=== PATIENT | male | born 1950 | race Two or more races ===

== ENCOUNTER 2022-11-17 21:38 | Emergency (ER) | payer MEDICARE, MEDICAID ==
[~2022-11-17] VITALS: Ht 177.8 cm; Wt 64.0 kg
[2022-11-17] MEDS ORDERED: SODIUM BICARBONATE 8.4% INJ 50ML SYRINGE IV ONE (21:39)
[2022-11-17] MEDS ORDERED: EPINEPHrine HCL 1 MG/10 ML SYRG IV ONE (21:39)
[2022-11-17] MEDS ORDERED: CALCIUM CHLOR(10%) 100MG/ML 10ML SYRINGE IV ONE (21:39)
[2022-11-17] MEDS ORDERED: ETOMIDATE (2MG/ML) 20ML VIAL IV ONE (21:47)
[2022-11-17] MEDS ORDERED: ROCURONIUM 10MG/ML 10ML VIAL IV ONE (21:47)
[2022-11-17] MEDS ORDERED: MIDAZOLAM DRIP 50 mg/50mL 50 ML IV ONE (21:56)
[2022-11-17] MEDS ORDERED: fentaNYL Drip 2500mCg/250mlNS 0 ML IV ONE (21:57)
[2022-11-17] MEDS ORDERED: DEXTROSE 10% 250 ML IV ONE (22:01)
[2022-11-17] MEDS ORDERED: MAGNESIUM SULFATE 1GM/100ML 200 ML IV ONE (22:07)
[2022-11-17] MEDS ORDERED: PIPERACILLIN-TAZOB 3.375GM 100 ML IV ONE (22:15)
[2022-11-17] MEDS ORDERED: LACTATED RINGER'S 3,000 ML IV ONE (22:15)
[2022-11-17] MEDS ORDERED: VANCOMYCIN 1GM/250ML 250 ML IV ONE (22:15)
[2022-11-17 22:31] LABS: Basophils # (auto) 0 10 ^3/uL (0-0.2); Eosinophils # (auto) 0.1 10 ^3/uL (0-0.8); Lymphocytes # (auto) 2.5 10 ^3/uL (0.4-5.4); Monocytes # (auto) 0.2 10 ^3/uL (0-1.3); Nucleated Red Blood Cells % 0.3 %
[2022-11-17 22:32] LABS: Basophils % (auto) 0.5 % (0.0-2.0); Eosinophils % (auto) 1.1 % (0.0-7.0); Hematocrit 31.8 % (41.0-53.0); Hemoglobin 10.7 g/dL (13.5-17.5); Lymphocytes % (auto) 36.8 % (10.0-50.0); Mean Corpuscular Hemoglobin 35.2 pg (28.0-32.0); Mean Corpuscular Hgb Conc. 33.6 g/dL (32.0-36.0); Mean Corpuscular Volume 104.7 fL (80.0-100.0); Monocytes % (auto) 2.7 % (0.0-12.0); Neutrophils # (auto) 3.9 10 ^3/uL (1.6-8.6); Neutrophils % (auto) 58.9 % (37.0-80.0); Red Blood Cells 3.03 10^6/uL (4.5-5.90); White Blood Cell 6.7 10^3/uL (4.4-10.8)
[2022-11-17] MEDS ORDERED: SODIUM CHLORIDE 0.9% 2,000 ML IV ONE (22:45)
[2022-11-17 22:46] LABS: INR 1.26 (0.9-1.15); Partial Thromboplastin Time 43.3 sec (24.6-33.4)
[2022-11-17 22:52] LABS: Albumin 2.5 g/dL (3.4-5.0); Anion Gap 17 (5-15); BUN/Creatinine Ratio 18.8 (10.0-20.0); Blood Alcohol < 3.0 mg/dL (0-5); Blood Urea Nitrogen 36 mg/dL (7-18); Calcium 9.6 mg/dL (8.5-10.1); Carbon Dioxide 14 mmol/L (21-32); Chloride 103 mmol/L (98-107); GFR African American 45 mL/min; GFR Non-African American 37 mL/min; Glucose 169 mg/dL (74-106); Lipase 334 U/L (73-393); Potassium 3.4 mmol/L (3.5-5.1); Sodium 134 mmol/L (136-145)
[2022-11-17 22:54] LABS: Lactic Acid w/Reflex 10.8 mmol/L (0.4-2.0)
[2022-11-17 22:55] LABS: Alanine Aminotransferase 113 U/L (16-61); Alkaline Phosphatase 43 U/L (45-117); Aspartate Aminotransferase 169 U/L (15-37); Bilirubin, Total 0.6 mg/dL (0.2-1.0)
[2022-11-17 22:57] LABS: Salicylate 1.8 mg/dL (2.8-20.0)
[2022-11-17] MEDS ORDERED: PHENYLEPHRINE IV 250 ML IV ONE (23:15)
[2022-11-17 23:25] LABS: Acetaminophen < 2.0 ug/mL (10-30)
[2022-11-17] MEDS ORDERED: PHENYLEPHRINE IV 250 ML IV SCH (23:30)
[2022-11-17] MEDS ORDERED: HYDROCORTISONE SOD SUCC 100 MG/2ML INJ VIAL IV ONE (23:45)
[2022-11-17] MEDS ORDERED: VASOPRESSIN 20 UNITS in SODIUM CHL 0.9% 99 ML IV SCH (23:45)
[2022-11-18] MEDS ORDERED: SODIUM BICARBONATE 8.4 % INJ 50ML VIAL IV ONE
[2022-11-18] MEDS ORDERED: VASOPRESSIN 20 UNIT/ML ONE (00:02)
[2022-11-18 00:05] VITALS: BP 46/26
[2022-11-18 00:15] VITALS: BP 39/21
[2022-11-18] MEDS ORDERED: VASOPRESSIN 20 UNITS in SODIUM CHL 0.9% 99 ML IV SCH (00:15)
[2022-11-18] MEDS ORDERED: ETOMIDATE (2MG/ML) 20ML VIAL IV ONE (00:15)
[2022-11-18] MEDS ORDERED: ROCURONIUM 10MG/ML 10ML VIAL IV ONE (00:15)
[2022-11-18] MEDS ORDERED: SODIUM BICARBONATE 8.4% INJ 50ML SYRINGE ONE (00:49)
[2022-11-18] MEDS ORDERED: HYDROCORTISONE SOD SUCC 100 MG/2ML INJ VIAL IV ONE (02:00)
[2022-11-18 02:02] VITALS: BP 72/43
[2022-11-18] MEDS ORDERED: NOREPINEPHRINE 8 MG/250ML KIT 250 ML IV ONE (02:41)
[2022-11-18 03:00] VITALS: BP 39/21
[2022-11-18] MEDS ORDERED: NOREPINEPHRINE 8 MG/250ML KIT 250 ML IV SCH (03:45)
[2022-11-18] MEDS ORDERED: MIDAZOLAM DRIP 50 mg/50mL 50 ML IV SCH (04:15)
[2022-11-18] MEDS ORDERED: fentaNYL Drip 2500mCg/250mlNS 250 ML IV SCH (04:15)
== END 2022-11-18 03:59 ==
LOC: ER 21:38 → EDBD 21:38 → ER 11-18 03:59
DX: I46.9 Cardiac arrest, cause unspecified (principal); R41.82 Altered mental status, unspecified; D64.9 Anemia, unspecified; I95.9 Hypotension, unspecified; D72.829 Elevated white blood cell count, unspecified; I10 Essential (primary) hypertension
CPT/HCPCS: 31500; 36415; 36430; 36556; 36600; 71045; 80053; 80320; 80329; 82010; 82553; 82805; 82962; 83605; 83690; 83880; 83930; 84484; 85025; 85610; 85730; 86920; 87070; 87077; 87186; 87205; 93005; 96361; 96365; 96367; 96375; 99291; J0171; J2250; J2370; J2543; J3370; J3475; J7030; P9016; 94002